=== PATIENT | female | born 1995 | race Caucasian/White ===

== ENCOUNTER 2019-01-21 19:49 | Inpatient (IN) ==
[2019-01-21] MEDS ORDERED: NS 1,000 ML IV ONE ×2 (20:08→22:40)
[2019-01-21 20:36] LABS: BILIRUBIN URINE NEGATIVE (NEGATIVE); BLOOD URINE TRACE (NEGATIVE); CLARITY CLEAR (CLEAR); COLOR YELLOW; GLUCOSE URINE NEGATIVE (NEGATIVE); KETONE URINE NEGATIVE (NEGATIVE); LEUKOCYTES URINE NEGATIVE (NEGATIVE); NITRITE URINE NEGATIVE (NEGATIVE); PROTEIN URINE NEGATIVE (NEGATIVE); SP GRAVITY URINE 1.005; URINE SOURCE CLEAN CATCH; UROBILINOGEN URINE NORMAL
[2019-01-21 20:37] LABS: URINE BACTERIA NEGATIVE /HFP; URINE EPITHELIAL CELLS <10 /HPF (<10); URINE RBC <10 /HPF (<10); URINE WBC <10 /HPF (<10)
[2019-01-21 20:40] LABS: BASO# 0.03 X1000 (0.0-0.2); BASO% 0.3 % (0.0-0.8); EOS# 0.14 X1000 (0.0-0.7); EOS% 1.5 % (0.0-10.0); HEMATOCRIT 39.2 % (37.0-47.0); HEMOGLOBIN 12.4 g/dL (12.0-16.0); IMM GRAN# 0.01 X1000 (0.0-0.04); IMM GRAN% 0.1 % (0.0-0.5); LYMPH# 3.38 X1000 (1.2-3.4); LYMPH% 37.4 % (20.5-51.1); MCH 28.7 PG (27-31); MCHC 31.6 g/dL (33-37); MCV 90.7 FL (81-99); MONO# 0.67 X1000 (0.11-0.59); MONO% 7.4 % (1.7-9.3); MPV 9.5 FL (7.4-10.4); NEUT# 4.81 X1000 (1.4-6.5); NEUT% 53.3 % (42.2-75.2); PLT 386 X1000 (130-400); RBC 4.32 XMIL (4.2-5.4); RDW 13.8 % (11.5-14.5); WBC 9.04 X1000 (4.8-10.8)
[2019-01-21 20:40] LABS: UR AMPHETAMINES QUAL NONE DETECTED (NONE DETECT); UR BARBITUATES QUAL NONE DETECTED (NONE DETECT); UR BENZODIAZEPIN QUAL NONE DETECTED (NONE DETECT); UR CANNABINOIDS QUAL NONE DETECTED (NONE DETECT); UR COCAINE QUAL NONE DETECTED (NONE DETECT); UR METHADONE QUAL NONE DETECTED (NONE DETECT); UR METHAMPHETAMINE QUAL NONE DETECTED (NONE DETECT); UR OPIATES QUAL NONE DETECTED (NONE DETECT); UR OXYCODONE QUAL NONE DETECTED (NONE DETECT); UR PCP QUAL NONE DETECTED (NONE DETECT); UR PROPOXYPHENE QUAL NONE DETECTED (NONE DETECT); UR TCA QUAL NONE DETECTED (NONE DETECT)
[2019-01-21 21:03] LABS: AGAP 14; ALBUMIN 4.7 g/dL (3.5-5.0); ALKALINE PHOSPHATASE 62 U/L (32-104); BUN 7 mg/dL (8-22); CALCIUM 9.9 mg/dL (8.8-10.2); CHLORIDE 105 mmol/L (98-107); COSMO 281; CREATININE 0.6 mg/dL (0.5-0.9); ESTIMATED GFR > 60; GLUCOSE 88 mg/dL (70-104); GOT 18 U/L (10-30); GPT 15 U/L (10-36); POTASSIUM 3.6 mmol/L (3.5-5.1); SALICYLATES < 3.00 mg/dL (3-10); SODIUM 142 mmol/L (136-145); TCO2 23 mmol/L (25-35); TOTAL BILIRUBIN < 0.15 mg/dL (0.20-1.00); TOTAL PROTEIN 7.9 g/dL (6.3-8.3)
[2019-01-21 21:20] LABS: FREE T4 1.37 ng/dL (0.93-1.70)
[2019-01-21 21:22] LABS: TSH 5.65 uIUmL (0.27-4.20)
[2019-01-21] MEDS ORDERED: ZOFRAN IV ONE (22:18)
--- NOTE | 2019-01-21 22:36 | PROVIDER DOCUMENTATION ---
This chart was entered by Leigh Vaughn Scribe, acting as scribe for Robert Madrigal MD. HPI-Psychological Disorder - General Chief Complaint: Overdose Stated Complaint: POSS OVERDOSE Time Seen by Provider: 01/21/19 20:07 Source: patient Allergies/Adverse Reactions: Patient Allergies Allergy/AdvReac Type Severity Reaction Status Date / Time hydromorphone [From Dilaudid] Allergy ITCHING Verified 11/20/18 12:08 Home Medications: Home Medication List Medication Instructions Recorded Confirmed Last Taken Type Brexpiprazole [Rexulti] 3 mg PO QHS 01/21/19 01/21/19 1 Day Ago History ~01/20/19 Desvenlafaxine [Desvenlafaxine ER] 50 mg PO QAM 01/21/19 01/21/19 01/21/19 History Dicyclomine HCl 20 mg PO BID 01/21/19 01/21/19 01/21/19 History Fluoxetine [Prozac] 20 mg PO DAILY 01/21/19 01/21/19 01/21/19 History Gabapentin 300 mg PO QAM 01/21/19 01/21/19 01/21/19 History Gabapentin 900 mg PO QHS 01/21/19 01/21/19 1 Day Ago History ~01/20/19 Lamotrigine 200 mg PO QAM 01/21/19 01/21/19 01/21/19 History Lamotrigine 250 mg PO QHS 01/21/19 01/21/19 1 Day Ago History ~01/20/19 Levothyroxine [Synthroid] 75 microgm PO DAILY 01/21/19 01/21/19 01/21/19 History Trazodone [Desyrel] 25 mg PO QHS 01/21/19 01/21/19 01/21/19 History - History of Present Illness-Psych Nature of Presenting Problem: pt is a 23 yr old female presenting with report of intentional overdose, jamila cidal ideation. 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 pt reports she just feels numb now. pt admits hx of of anxiety, depression and bipolar disorder. pt reports hx of suicidal thoughts, no prior attempts Onset/Duration: reports: 1-3 hours ago Timing: reports: still present Psychiatric Complaints: reports: anxiety, depressed, suicidal ideation. denies: homicidal thoughts Substance Use: reports: denies Previous psych related hospitalizations?: Yes Patient arrived by:: private car Similar Symptoms Previously?: Yes Recently seen or treated by another doctor?: No - Suicidal Ideation How did the ingestion/other suicidal act come to attention?: self reported Suicide Risk Assessment: depressed, organized plan, bi-polar Suicidal Attempt Method: reports: Overdose Review of Systems - Adult - REVIEW OF SYSTEMS - ADULT Constitutional: reports: no symptoms reported Eyes: reports: no symptoms reported Ears, Nose, Mouth & Throat: reports: no symptoms reported Cardiovascular: reports: no symptoms reported. denies: syncope Respiratory: reports: no symptoms reported Gastrointestinal: reports: no symptoms reported Genitourinary: reports: no symptoms reported Musculoskeletal: reports: no symptoms reported Integumentary: reports: no symptoms reported Neurological: reports: no symptoms reported Psychiatric: reports: anxiety, depression, emotional problems, suicidal thoughts Endocrine: reports: no symptoms reported Hematologic/Lymphatic: reports: no symptoms reported Allergic/Immunologic: reports: no symptoms reported All Other Systems: Reviewed and Negative Past History - Adult - PAST MEDICAL HISTORY-ADULT Review of Records: reports: Old Records Reviewed, Nursing Assessment Review, Medications Reviewed, Social history reviewed & non-contributory. Major Childhood Illnesses: reports: denies history Cardiovascular: reports: denies history Respiratory: reports: denies history Gastrointestinal: reports: denies history Obstetrical/Gynecological: reports: denies history Genitourinary: reports: denies history Musculoskeletal: reports: denies history Neurological: reports: denies history Endocrine/Immune: reports: denies history Other Conditions: reports: denies history - IMMUNIZATION STATUS Childhood Immunizations: See Nurse Assessment Flu Vaccine: See Nurse Assessment - FAMILY HISTORY Family History: reviewed, not pertinent - SOCIAL HISTORY Smoking: denies Substance Use: denies Living Situation: family Physical Exam-Psych Focus - Physical Exam-Psych Initial Vital Signs Reviewed: Yes Appearance: neat, no apparent distress Neurological: alert, depressed affect, flat Behavior/Eye Contact/Speech: cooperative, good eye contact, normal speech Thoughts/Hallucinations: normal thought pattern, no apparent hallucination HENMT: normocephalic/atraumatic, moist mucous membranes, normal ENT inspection Neck: non-tender, full range of motion, supple, normal inspection Respiratory: lungs clear, normal breath sounds Cardiovascular: normal peripheral pulses, no edema, tachycardia Abdominal Exam: normal bowel sounds, non tender, soft Lymphatic: no adenopathy Back Exam: normal inspection Extremity: normal range of motion, non-tender, normal gait, normal inspection Integumentary: normal color, normal turgor, warm/dry Progress - PLAN OF CARE/RESULTS Progress/Plan/Lab Results: Bedside Urine ED: Urine Bedside Start: 01/21/19 20:30 Freq: ORDERED Status: Active Protocol: Activity Type Activity Date Activity User E-Sign Co-Sign Detail Recorded Client Recorded Date Recorded By Document 01/21/19 20:31 [id number] 01/21/19 20:32 [id number] 01/21/19 20:31 Point of Care [Bedside Point of Care] -Lot # [id number] - Results Negative -Control Line Visible? Yes Result Diagrams: 01/21/19 20:08 01/21/19 20:08 - REASSESSMENT Reassessment #1 Time Reassessed: 22:25 Status: other (stable, was feeling nauseous, zofran 4 mg iv administered.) - EKG 1 Time of EKG reading by physician:: 20:34 EKG Read and Signed by:: Robert Madrigal EKG Interpretation (*Must complete 3 of following elements*): Abnormal (non specific st and t wave abnormailty-rate related?) Rate: 126 Rhythm: sinus tach Mondamin: normal QRS: normal ME Interval: normal ST Wave: non-specific ST changes - CONSULTS/PCP/HOSPITALIST Notification #1 *Consult/PCP/Hospitalist*: d/w Dr Padilla Time Discussed: 22:30 Consult Disposition: Admit Departure - Departure Date of Disposition Decision: 01/21/19 Time of Disposition Decision: 22:33 DIAGNOSIS: Suicidal overdose, Bipolar disorder Disposition: ADMITTED INPATIENT 09 Certified Medical Emergency: Emergent Condition: Stable - Critical Care Note This patient required my direct & personal management of CC.: No Attestation - Physician/ GRZEGORZ Attestation Patient care was provided by Advanced Practice Provider:: No The physician spent face to face time with patient:: Yes Advanced Practice Provider documentation review:: Supervising physician onsite and consulted in the evaluation and care of this patient. The physician did have a face to face encounter with the patient. This chart was documented by the indicated scribe, (Leigh Vaughn, Nora) and accurately reflects the services I performed and decisions made by me, Robert Madrigal MD, as attested by the provider's signature.
[2019-01-22] MEDS: NS 1,000 ML IV SCH ×4 (00:30→22:34)
--- NOTE | 2019-01-22 03:33 | EKG Report ---
Test Performed on : 01/21/2019 8:34:11 PM Test Reason : overdose Blood Pressure : / mmHG Vent. Rate : 126 BPM Atrial Rate : 126 BPM P-R Int : 142 ms QRS Dur : 090 ms QT Int : 318 ms P-R-T Axes : 062 014 012 degrees QTc Int : 460 ms Sinus tachycardia. Nonspecific ST and T wave abnormality Abnormal ECG When compared with ECG of 20-NOV-2018 14:45, Non-specific change in ST segment in Anterior leads T wave inversion now evident in Anterior leads Unconfirmed Result
[2019-01-22 07:11] LABS: HEMATOCRIT 33.7 % (37.0-47.0); HEMOGLOBIN 10.8 g/dL (12.0-16.0); MCH 28.9 PG (27-31); MCV 90.1 FL (81-99); MPV 8.9 FL (7.4-10.4); RBC 3.74 XMIL (4.2-5.4); RDW 13.8 % (11.5-14.5); WBC 8.52 X1000 (4.8-10.8)
[2019-01-22 07:41] LABS: ACETAMINOPHEN < 1.2 ug/mL (10-30); AGAP 10; ALBUMIN 4.1 g/dL (3.5-5.0); ALKALINE PHOSPHATASE 50 U/L (32-104); BUN 4 mg/dL (8-22); CALCIUM 9.1 mg/dL (8.8-10.2); CHLORIDE 106 mmol/L (98-107); COSMO 272; CREATININE 0.5 mg/dL (0.5-0.9); ESTIMATED GFR > 60; GLUCOSE 89 mg/dL (70-104); GOT 15 U/L (10-30); GPT 12 U/L (10-36); POTASSIUM 3.8 mmol/L (3.5-5.1); SALICYLATES < 3.00 mg/dL (3-10); SODIUM 138 mmol/L (136-145); TCO2 22 mmol/L (25-35); TOTAL BILIRUBIN < 0.15 mg/dL (0.20-1.00); TOTAL PROTEIN 6.9 g/dL (6.3-8.3)
--- NOTE | 2019-01-22 08:05 | HISTORY AND PHYSICAL ---
CHIEF COMPLAINT: Suicide intent. HISTORY OF PRESENT ILLNESS: Ms. Peterson is a 23-year-old female, who carries a past medical history of depression, bipolar, anxiety, and hypothyroidism, who reported that she has been feeling depressed and under some stress, so she took Robaxin, tramadol, and Benadryl of an unknown amount, regretted it and came to the ED to be evaluated. She was given a liter bolus of normal saline, initiated on IV fluids, watched closely overnight one on one. We will recheck a.m. labs and put in for a Sales Program Manager and [facility] consult. She is currently complaining of a headache. There is no fever, chills, cough, shortness of breath, chest pain, abdominal pain, nausea, vomiting or diarrhea. PAST MEDICAL HISTORY: 1. Bipolar disorder. 2. Anxiety and depression. 3. Hypothyroidism. PAST SURGICAL HISTORY: 1. Appendectomy. 2. Cholecystectomy. 3. Tonsil and adenoids. 4. Two cyst removals. 5. [place] teeth. SOCIAL HISTORY: She works at [employer]. She is single. No children. No alcohol, tobacco, marijuana or illicit drug use. FAMILY HISTORY: Father with bipolar depression, as well as her father's sister. Father with heart disease. Mother with melanoma. Paternal grandfather with lung cancer. ALLERGIES: Hydromorphone. HOME MEDICATIONS: 1. Rexulti 3 mg p.o. at bedtime. 2. Desvenlafaxine 50 mg p.o. q.a.m. 3. Bentyl 20 mg p.o. b.i.d. 4. Prozac 20 mg p.o. daily. 5. Gabapentin 300 mg p.o. q.a.m. 6. Gabapentin 900 mg p.o. at bedtime. 7. Lamotrigine 250 mg p.o. at bedtime. 8. Lamotrigine 200 mg p.o. q.a.m. 9. Synthroid 75 mcg p.o. daily. 10. Desyrel 25 mg p.o. at bedtime. REVIEW OF SYSTEMS: Twelve-point review of systems completely negative, except for those mentioned in the HPI. PHYSICAL EXAMINATION: VITAL SIGNS: Temperature is 99.8 degrees, heart rate 117, respirations 23, blood pressure 136/85, O2 is 100% on room air. GENERAL: Ms. Peterson is a 23-year-old female, who is sitting up in the bed in the ICU in no acute distress. HEENT: Atraumatic, normocephalic. PERRL. NECK: Supple. Trachea midline. CARDIOVASCULAR: S1, S2 appreciated. No murmurs, gallops, rubs noted. RESPIRATORY: Lung sounds clear bilaterally. GI: Soft, nontender, nondistended. Positive bowel sounds 4 quadrants. LOWER EXTREMITIES: Negative for edema. NEUROLOGIC: Patient is awake, alert, oriented. Follows commands. Moves all extremities. Answers all questions appropriately. DIAGNOSTIC DATA: Initial EKG: Sinus tachycardia 126 beats per minute. LABORATORY DATA: White count 8, hemoglobin and hematocrit 10 and 33, platelet count 322. Sodium 142, potassium 3.6, BUN 7, creatinine 0.6, blood glucose is 88. TSH 5.65, free T4 1.37. Initial salicylate is less than 3.0 cm, acetaminophen 1.2, and alcohol level was negative. Other tox screen negative. Urinalysis is clear. ASSESSMENT AND PLAN: 1. Suicide attempt secondary to feelings of depression. She reports this is her first time. She took Robaxin, tramadol, Benadryl of unknown amount. She said she immediately regretted it, went to the emergency room for help. She has been monitored in the intensive care unit overnight, continued on intravenous fluids. We will consult Sales Program Manager and [facility] Ter[facility]. 2. Bipolar. 3. Anxiety and depression. 4. Hypothyroidism. 5. Further recommendations to follow physician evaluation, [facility] Teran evaluation and laboratory and diagnostic data. Dictated by KIRSTY Phillips for Daniel Padilla MD cc: Daniel Padilla MD
--- NOTE | 2019-01-22 09:25 | EKG Report ---
Test Performed on : 01/22/2019 07:47:38 AM Test Reason : OD Blood Pressure : / mmHG Vent. Rate : 091 BPM Atrial Rate : 091 BPM P-R Int : 160 ms QRS Dur : 088 ms QT Int : 364 ms P-R-T Axes : 054 008 028 degrees QTc Int : 447 ms Normal sinus rhythm. Normal ECG When compared with ECG of 21-JAN-2019 20:34, (Unconfirmed) Nonspecific T wave abnormality has replaced inverted T waves in Anterior leads Confirmed by Jairo Ortiz MD ([id number]) on 01/22/2019 9:11:36 PM
[2019-01-22] MEDS: BENTYL PO SCH (20:07)
[2019-01-22] MEDS ORDERED: LAMICTAL PO SCH (21:00)
[2019-01-22] MEDS ORDERED: NON-FORMULARY MED (Brexpiprazole [Rexulti] 0 MG) PO SCH (21:00)
[2019-01-22] MEDS ORDERED: DESYREL PO SCH (21:00)
[2019-01-22] MEDS ORDERED: NEURONTIN PO SCH (21:00)
--- NOTE | 2019-01-22 23:17 | HISTORY AND PHYSICAL ---
ADDENDUM: Patient seen and examined by myself. Full note dictated and discussed with nurse practitioner. The patient presented to the hospital after having taken an intentional overdose with a suicide attempt. She had taken unknown amounts of Benadryl, Robaxin and tramadol. She does have a history of anxiety, depression and bipolar. We are going to admit her to the hospital, monitor for the next 24 hours. Should all of her symptoms improve and she have no further complications from her overdose, we are going to contact [facility] Ter[facility] for assistance. Please see full note. cc: Daniel Padilla MD
[2019-01-23] MEDS: NS 1,000 ML IV SCH (05:14)
[2019-01-23] MEDS ORDERED: SYNTHROID PO SCH (07:00)
[2019-01-23 08:32] VITALS: BP 121/69
[2019-01-23] MEDS ORDERED: LAMICTAL PO SCH (09:00)
[2019-01-23] MEDS ORDERED: PROZAC PO SCH (09:00)
[2019-01-23] MEDS ORDERED: PRISTIQ ER PO SCH (09:00)
[2019-01-23] MEDS ORDERED: NEURONTIN PO SCH (09:00)
[2019-01-23] MEDS: BENTYL PO SCH (09:42)
--- NOTE | 2019-01-23 20:18 | DISCHARGE SUMMARY ---
ADMISSION DATE: 01/21/2019 DISCHARGE DATE: 01/23/2019 PERTINENT PROCEDURES: Initial EKG sinus tachycardia with nonspecific ST and T-wave abnormalities at 126 beats per minute. Followup EKG normal sinus rhythm. Normal ECG at 91 beats per minute. DISCHARGE DIAGNOSES: 1. Suicide attempt secondary to feelings of depression. Patient reported took Robaxin, tramadol, and Benadryl of an unknown amount. She reported she immediately regretted it and went to the emergency room for help. She has been a 1 on 1 monitored in the ICU overnight and placed on IV fluids. Poison Control was contacted. Appropriate care was monitor. E Business Specialist as well as [facility] Teran was brought on board. She has spoken with [facility]iden Teran. They did felt that she did try to overdose that she was a candidate. The patient is again at once regretful and does want to go home with family. A [facility] Teran screener is going to talk to the psychiatrist and see if they can sign a no harm and send her home with her mother. If not, she will be pending [place] admission. 2. Bipolar. 3. Anxiety and depression. 4. Hypothyroidism. HOSPITAL COURSE: Briefly, Ms. Peterson is a 23-year-old female who carries a past medical history of depression, bipolar, anxiety, hypothyroidism, who reports she has been feeling depressed and under some stress. She took Robaxin, tramadol, and Benadryl, but unknown amount. Regretted it and came to the ED to be evaluated. She was given a normal saline bolus, initiated on IV fluids. Contacted Poison Control and monitored lab values and EKG overnight. She has been a 1 on 1 in the ICU. E Business Specialist and A[facility] Teran were both consulted. She has been evaluated by the screener. At this time they do not have any beds. The patient is wishing to go home with family. Aiden Teran is going to talk with the psychiatrist to see if she would be okay to go home with a no harm contract as well as home with her parents. We are currently pending that final recommendation. DISCHARGE DIET: Regular. DISCHARGE MEDICATIONS: 1. Gabapentin 900 mg p.o. at bedtime. 2. Lamictal 250 mg p.o. at bedtime. 3. Rexulti 3 mg p.o. at bedtime. 4. Pristiq ER 50 mg p.o. q.a.m. 5. Gabapentin 300 mg p.o. q.a.m. 6. Lamictal 200 mg p.o. q.a.m. 7. Prozac 20 mg p.o. daily. 8. Synthroid 75 mcg p.o. daily. FOLLOWUP: Ms. Peterson will be discharged possibly with a no harm contract at home with her mother or with [facility]. DISCHARGE INSTRUCTIONS: She has been educated to take all medications as appropriate or as prescribed. She can return to the ED or call 911 for any worsening of symptoms. Dictated by KIRSTY Phillips for Daniel Padilla MD cc: Daniel Padilla MD
[2019-01-23] MEDS ORDERED: NON-FORMULARY MED PO SCH (21:00)
--- NOTE | 2019-01-24 00:32 | PROGRESS NOTE ---
DATE: 01/23/2019 SUBJECTIVE: Patient notes that she is feeling a lot better. States she has no desire to hurt herself or anyone else at this point. Notes that it was a mistake to attempt in the first place. PHYSICAL EXAMINATION: Vital signs: Temperature 98.6 degrees, pulse 74, respiratory rate 18, BP 120/70. General: Patient is awake, currently in no distress. HEENT: Normocephalic. Neck: Supple. Cardiovascular: Regular rate. No murmurs. Chest: Clear and nonlabored. Abdomen: Soft, nondistended. Extremities: Moves all extremities. Neurologic: No focal changes. ASSESSMENT: 1. Suicidal ideation. 2. Bipolar. 3. Anxiety. 4. Hypothyroidism. PLAN: We will continue patient in the hospital. We are going to consult Aiden Teran and if they agree hopefully she can discharge home later this afternoon. cc: Daniel Padilla MD
== END 2019-01-23 10:50 | disposition home or self-care (01) | DRG 918 ==
LOC: P.ED 19:49 → P.ICU 19:50
PROVIDERS: ATTEND Family Medicine